=== PATIENT | male | born 1950 | race Caucasian/White ===

== ENCOUNTER 2024-03-12 10:03 | Inpatient (IN) | payer MEDICARE, SELFPAY ==
[2024-03-12] VITALS (8 sets, daily range): BP systolic 137–179; BP diastolic 75–108; PULSE 92–105; RESP 16–20; TEMP 36.7–37.4; O2SAT 96–99; BMI 20.6
[2024-03-12 10:38] LABS: Alanine Aminotransferase 28 IU/L (<50); Albumin 5.4 g/dL (3.5-5.0); Albumin Globulin Ratio 1.6 (1.0-2.8); Alkaline Phosphatase 104 U/L (38-126); Aspartate Aminotransferase 38 IU/L (17-59); BUN Creatinine Ratio 26.8 (6-22); Bilirubin Total 0.9 mg/dL (0.2-1.3); Blood Urea Nitrogen 19 mg/dL (9-20); Calcium 10.3 mg/dL (8.4-10.2); Carbon Dioxide 25 mmol/L (22-32); Chloride 95 mmol/L (98-107); Creatine Kinase 127 U/L (55-170); Estimated Glomerular Filt Rate > 60 mL/min (>60); Globulin 3.4 g/dL (1.7-4.1); Glucose 150 mg/dL (80-110); HEMOLYSIS < 15 (0-50); Hematocrit 37.5 % (41-53); Hemoglobin 12.1 g/dL (13.5-17.5); Lipase 129 U/L (23-300); Mean Corpuscular HGB Conc 32.1 % (30-36); Mean Corpuscular Hemoglobin 25.2 PG (26-34); Mean Corpuscular Volume 78.4 fL (80-100); Platelet Count 519 X10^3/uL (150-400); Potassium 3.5 mmol/L (3.4-5.1); Red Blood Cell Count 4.78 X10^6/uL (4.5-5.9); Red Cell Distribution Width 18.7 % (11.6-14.8); Sodium 131 mmol/L (137-145); Total Protein 8.8 g/dL (6.3-8.2); White Blood Cell Count 15.2 X10^3/uL (4.5-11.0)
--- NOTE | 2024-03-12 10:38 | ED_ITS ---
HPI - General Adult General Chief complaint: Abdominal Pain Stated complaint: ABD Pain, Chronic Pancreatitis Time Seen by Provider: 03/12/24 10:11 Source: patient Mode of arrival: Ambulatory History of Present Illness HPI narrative: Patient is a 74-year-old male who is here for evaluation of approximately 36 hours of upper abdominal pain. He has a history of ulcerative colitis. Also has a history of cutaneous T-cell lymphoma. He was on medications for both of these. Also has a history of chronic pancreatitis. Has had a small bowel obstruction in the past. Has had his appendix removed. Has not had any changes in stool. No blood in the stool. No urinary symptoms. No chest pain but describes the pain in the epigastric region. Is having quite a bit of nausea. Has nausea medication at home that has not helped any of his symptoms. No shortness of breath. Related Data Home Medications Medication Instructions Recorded Confirmed albuterol sulfate 2 mg/5 mL oral 2 mg PO TID 03/08/24 03/08/24 syrup atorvastatin 10 mg tablet 10 mg PO DAILY 03/08/24 03/08/24 budesonide-formoterol HFA 80 2 puff inhalation BID 03/08/24 03/08/24 mcg-4.5 mcg/actuation aerosol inhaler (Symbicort) buprenorphine 8 mg-naloxone 2 mg 1 film buccal Q24H 03/08/24 03/08/24 sublingual film (Suboxone) bupropion HCl 300 mg 24 hr tablet, 300 mg PO QAM 03/08/24 03/08/24 extended release (Wellbutrin XL) candesartan 8 mg tablet 8 mg PO DAILY 03/08/24 03/08/24 escitalopram oxalate 10 mg tablet 10 mg PO DAILY 03/08/24 03/08/24 folic acid 5 mg/mL injection 1 mg IM DAILY 03/08/24 03/08/24 solution methotrexate (PF) 15 mg/0.4 mL 15 mg SUBCUT QWEEK 03/08/24 03/08/24 subcutaneous auto-injector mirtazapine 15 mg tablet 15 mg PO .QHS 03/08/24 03/08/24 mometasone 50 mcg/actuation nasal 2 spray intranasal .prn 03/08/24 03/08/24 spray (Nasonex 24hr Allergy) nabilone 1 mg capsule mg PO 03/08/24 03/08/24 rabeprazole 20 mg tablet,delayed 20 mg PO BID 03/08/24 03/08/24 release tiotropium bromide 1.25 2 puff inhalation DAILY 03/08/24 03/08/24 mcg/actuation mist for inhalation (Spiriva Respimat) vedolizumab 300 mg intravenous 300 mg IV Q8W 03/08/24 03/08/24 solution (Entyvio) Allergies Allergy/AdvReac Type Severity Reaction Status Date / Time No Known Drug Allergies Allergy Unverified 03/08/24 13:34 Review of Systems Review of Systems ROS Unobtainable: All systems reviewed & are unremarkable except as noted in HPI and below Patient History Social History Smoking Status: Former smoker Smoking Status: Former smoker Substance Use Type: marijuana Exam Initial Vital Signs Initial Vital Signs: Vital Signs Temperature 98.1 F 03/12/24 10:19 Pulse Rate 92 H 03/12/24 10:19 Respiratory Rate 20 03/12/24 10:19 Blood Pressure 179/108 H 03/12/24 10:19 Pulse Oximetry 99 03/12/24 10:19 Oxygen Delivery Method Room Air 03/12/24 10:19 Const General: cooperative and No ill appearing HENMT Head: normal to inspection and normocephalic Resp Effort & Inspection: normal respiratory effort Auscultation: clear to auscultation bilaterally Cardio Rate: regular rate Rhythm: regular rhythm GI Inspection: normal to inspection and non-distended Palpation: soft, No firm, No guarding and tender (Epigastric region) Neuro General: patient alert, patient awake, patient oriented x3 and moves all extremities Speech: speech normal Extrem General: No edema Course Orders Ordered: ED Orders 03/12/24 10:17 Complete Blood Count AUTO DIFF Stat Comprehensive Metabolic Panel Stat Lipase Stat Troponin & CK Cardiac Panel Stat 03/12/24 10:28 EKG-12 Lead Stat 03/12/24 10:37 CT abdomen pelvis w con Stat 03/12/24 13:20 Consult to Physician Stat 03/12/24 13:46 Consult to Physician Stat Consult to Physician Stat Discontinued Medications Metoclopramide HCl (Metoclopramide 10 Mg/2 Ml Inj) 10 mg IV NOW ONE Stop: 03/12/24 10:38 Last Admin: 03/12/24 11:08 Dose: 10 mg Documented By: JAY Morphine Sulfate (Morphine 4 Mg/Ml Inj) 4 mg IV NOW ONE Stop: 03/12/24 10:38 Last Admin: 03/12/24 11:08 Dose: 4 mg Documented By: JAY Pantoprazole Sodium (Pantoprazole 40 Mg Vial) 40 mg IV NOW ONE Stop: 03/12/24 10:29 Last Admin: 03/12/24 11:08 Dose: 40 mg Documented By: JAY Vital Signs Vital signs: Vital Signs - 8 hr 03/12/24 10:19 Temperature 98.1 F Pulse Rate 92 H Respiratory Rate 20 Blood Pressure 179/108 H Pulse Oximetry 99 Oxygen Delivery Method Room Air Medical Decision Making Lab Data Lab results reviewed: Yes I reviewed the patient's lab results. 03/12/24 10:17 03/12/24 10:17 Labs: Lab Results 03/12/24 Range/Units 10:17 WBC 15.2 H (4.5-11.0) X10^3/uL RBC 4.78 (4.5-5.9) X10^6/uL Hgb 12.1 L (13.5-17.5) g/dL Hct 37.5 L (41-53) % MCV 78.4 L (80-100) fL MCH 25.2 L (26-34) PG MCHC 32.1 (30-36) % RDW 18.7 H (11.6-14.8) % Plt Count 519 H (150-400) X10^3/uL Neut % (Auto) Not Reportable Lymph % (Auto) Not Reportable [place] % (Auto) Not Reportable Eos % (Auto) Not Reportable Baso % (Auto) Not Reportable Lymph # (Auto) Not Reportable [place] # (Auto) Not Reportable Baso # (Auto) Not Reportable Total Counted 100 Seg Neutrophils % 82.0 H (38-70) % Band Neutrophils % 1.0 L (3-7) % Lymphocytes % (Manual) 10.0 L (25-45) % Monocytes % (Manual) 7.0 (2-11) % Neutrophils # (Manual) 90321 H (6960-2304) /uL Nucleated RBCs 1 H ( - 0) #/Diff RBC Morphology See below Poikilocytosis 1+ H Anisocytosis 1+ H Sodium 131 L (137-145) mmol/L Potassium 3.5 (3.4-5.1) mmol/L Chloride 95 L (98-107) mmol/L Carbon Dioxide 25 (22-32) mmol/L BUN 19 (9-20) mg/dL Creatinine 0.71 (0.66-1.25) mg/dL Estimated GFR > 60 (>60) mL/min BUN/Creatinine Ratio 26.8 H (6-22) Glucose 150 H (80-110) mg/dL Calcium 10.3 H (8.4-10.2) mg/dL Total Bilirubin 0.9 (0.2-1.3) mg/dL AST 38 (17-59) IU/L ALT 28 (<50) IU/L Alkaline Phosphatase 104 (38-126) U/L Total Creatine Kinase 127 (55-170) U/L Troponin I < 0.012 (0.01-0.034) ng/mL Total Protein 8.8 H (6.3-8.2) g/dL Albumin 5.4 H (3.5-5.0) g/dL Globulin 3.4 (1.7-4.1) g/dL Albumin/Globulin Ratio 1.6 (1.0-2.8) Lipase 129 (23-300) U/L Imaging Data CT scan - abdomen/pelvis: Radiologist's Impression: ROCEDURE: CT ABDOMEN PELVIS W CON INDICATIONS: hx of SBO, ulcerative colitis and chronic pancreatitis TECHNIQUE: After the administration of intravenous contrast, axial sections acquired from the lung bases to the pubic symphysis. Coronal and sagittal reformats were performed. For radiation dose reduction, the following was used: automated exposure control, adjustment of mA and/or kV according to patient size. COMPARISON: None. FINDINGS: Lower thorax: Fluid distension of the distal esophagus associated with significant fluid distension of the stomach and proximal small bowel Liver: Normal in size and attenuation. No contour deformity present. Biliary system: No calcified cholelithiasis or pericholecystic inflammation. No intra or extrahepatic bile duct dilatation. Pancreas: Unremarkable without mass or inflammation evident. Spleen: Surgically absent Adrenals: Normal morphology and density. Reproductive system: Unremarkable as visualized. Urinary system: Normal renal size and attenuation. No renal calculi, hydronephrosis, or solid mass present. Urinary bladder unremarkable. Gastrointestinal system: Stomach, duodenum and proximal small bowel significantly fluid distended to a transition to normal caliber bowel in the mid left anterior abdomen. Bowel is dilated up to 4.8 cm Appendix: Appendectomy Peritoneal spaces: No mesenteric or retroperitoneal adenopathy. No free air. No free fluid. Vasculature: Aortic atherosclerotic vascular calcification noted without evidence of aneurysm. Abdominal wall: Abdominal wall intact without evidence of ventral or inguinal hernias. Musculoskeletal: Normal bone mineralization. Degenerative disc disease and arthropathy noted in lower lumbar spine. Lower lumbar spine fusion, instrumentation decompression. No acute fractures. IMPRESSION: 1. Small bowel obstruction. Transition in the mid left anterior abdomen 2. Splenectomy. No adenopathy. MDM Narrative Medical decision making narrative: CT scan today shows small bowel obstruction without signs of perforation. An NG tube was placed with a significant amount of stomach contents. Patient reports improvement of symptoms afterwards. Discussed the case with Dr. Santiago on- call for General surgery who as the patient be admitted to the medicine service. A consult was placed. Discussed the case with Dr. Prasad on-call for the patient's primary doctor who will admit for further evaluation and treatment. Discussed the CT scan findings with the patient who expressed understanding and agreement. Discharge Plan Departure Patient Disposition: Admitted As Inpatient Clinical Impression: Small bowel obstruction
[2024-03-12 10:40] LABS: Add Manual Diff / Slide Review YES
[2024-03-12 10:50] LABS: Troponin I < 0.012 ng/mL (0.01-0.034)
[2024-03-12] MEDS: PANTOPRAZOLE 40 MG VIAL IV (11:08)
[2024-03-12] MEDS: MORPHINE 4 MG/ML INJ IV (11:08)
[2024-03-12] MEDS: METOCLOPRAMIDE 10 MG/2 ML INJ IV (11:08)
[2024-03-12 11:11] LABS: Neutrophils Absolute Manual 12616 /uL (3000-5900); Nucleated Red Blood Cells 1 #/Diff; Total Cells Counted 100
[2024-03-12 11:12] LABS: Anisocytosis 1+; Poikilocytosis 1+
--- NOTE | 2024-03-12 13:04 | PC.NURSE ---
patient got an NG tube inserted. Immediately began vomiting and green fluid began flowing out of the tube. 1L was suctioned off into the canister with more fluid flowing in into the new tank. He stated his abd pain was getting less. His blood pressure went down as well to 152/91.
--- NOTE | 2024-03-12 13:08 | PC.NURSE ---
Patient had 1L of fluid drained immediately from the NG site. He reported feeling better immediately. His abd pain has lessoned and his BP decreased
[2024-03-12] MEDS: DEXTROSE 5%-0.9% NS 1,000 ML 125 ML IV ×2 (14:44→22:05)
[2024-03-12] MEDS: ONDANSETRON 4 MG/2 ML INJ IV (14:44)
[2024-03-12] MEDS: HYDROMORPHONE 1 MG INJ IV ×2 (14:53→20:34)
[2024-03-12] MEDS: NITROGLYCERIN OINT 1 INCH/GM OINT...G. 0.5 INCH TOP (15:37)
--- NOTE | 2024-03-12 17:48 | PM.CN ---
History of Present Illness Consult details Date Patient Seen: 03/12/24 Chief complaint: ABD Pain, Chronic Pancreatitis Reason for consult: SBO Requesting provider: Andrew Michelle Narrative: Not passing gas or BM, nausea and anorexia. Had similar episode prior which required surgery. Has had multiple abdominal surgeries. Know Ulerative colitis. Meds Home Medications and Allergies Home Medications Medication Instructions Recorded Confirmed Type atorvastatin 10 mg tablet 10 mg PO DAILY 03/08/24 03/12/24 History budesonide-formoterol HFA 80 2 puff inhalation BID 03/08/24 03/12/24 History mcg-4.5 mcg/actuation aerosol inhaler (Symbicort) buprenorphine 8 mg-naloxone 2 mg 1 film buccal TID 03/08/24 03/12/24 History sublingual film (Suboxone) bupropion HCl 300 mg 24 hr tablet, 300 mg PO QAM 03/08/24 03/12/24 History extended release (Wellbutrin XL) candesartan 8 mg tablet 8 mg PO DAILY 03/08/24 03/12/24 History escitalopram oxalate 10 mg tablet 10 mg PO DAILY 03/08/24 03/12/24 History folic acid 5 mg/mL injection 1 mg IM DAILY 03/08/24 03/12/24 History solution methotrexate (PF) 15 mg/0.4 mL 15 mg SUBCUT QWEEK 03/08/24 03/12/24 History subcutaneous auto-injector mirtazapine 15 mg tablet 15 mg PO .QHS 03/08/24 03/12/24 History mometasone 50 mcg/actuation nasal 2 spray intranasal .prn 03/08/24 03/12/24 History spray (Nasonex 24hr Allergy) nabilone 1 mg capsule mg PO 03/08/24 03/08/24 History rabeprazole 20 mg tablet,delayed 20 mg PO BID 03/08/24 03/12/24 History release tiotropium bromide 1.25 2 puff inhalation DAILY 03/08/24 03/12/24 History mcg/actuation mist for inhalation (Spiriva Respimat) vedolizumab 300 mg intravenous 300 mg IV Q8W 03/08/24 03/12/24 History solution (Entyvio) albuterol 90 mcg/actuation aerosol 90 mcg inhalation PRN PRN 03/12/24 03/12/24 History inhaler Shortness Of Breath Allergies Allergy/AdvReac Type Severity Reaction Status Date / Time No Known Drug Allergies Allergy Unverified 03/08/24 13:34 Review of Systems Review of Systems ROS: Yes All systems reviewed with the patient and are negative except as otherwise documented Exam Vital Signs (past 8 hours): - 03/12/24 10:19 03/12/24 14:35 03/12/24 15:37 Temperature 98.1 F 99.4 F Pulse Rate 92 H 102 H 102 H Respiratory Rate 20 18 Blood Pressure 179/108 H 155/95 H 155/95 H Pulse Oximetry 99 98 Oxygen Delivery Method Room Air Oxygen Flow Rate 0 03/12/24 16:00 Temperature 98.5 F Pulse Rate 105 H Respiratory Rate 16 Blood Pressure 169/100 H Pulse Oximetry 97 Oxygen Delivery Method Oxygen Flow Rate 0 Oxygen Delivery Method Room Air Oxygen Flow Rate 0 Narrative Exam Narrative: reports he is confused and remains so at the time of my exam. He denies any focal pain. Const General: cooperative, comfortable and anxious Nutritional Appearance: thin HENMT Head: normocephalic and atraumatic Ears: hearing grossly normal bilaterally Face and sinus: normal facial exam Eyes General: appearance normal, both eyes and all related structures Sclera: sclerae normal Neck Neck: no meningeal signs and trachea midline Chest Chest: normal inspection of the chest Resp Effort & Inspection: normal respiratory effort and able to speak in complete sentences Cardio Rate: tachycardic Rhythm: regular rhythm GI Inspection: distended Palpation: No firm, No guarding and No rigid Skin General: atrophy and dry skin Neuro General: patient alert, patient awake and patient oriented x3 Psych Mental Status: mental status grossly normal Affect: normal affect Judgment: fair Objective Labs 03/12/24 10:17 03/12/24 10:17 Labs: Laboratory Results - last 24 hr 03/12/24 10:17 WBC 15.2 H RBC 4.78 Hgb 12.1 L Hct 37.5 L MCV 78.4 L MCH 25.2 L MCHC 32.1 RDW 18.7 H Plt Count 519 H Neut % (Auto) Not Reportable Lymph % (Auto) Not Reportable [place] % (Auto) Not Reportable Eos % (Auto) Not Reportable Baso % (Auto) Not Reportable Lymph # (Auto) Not Reportable [place] # (Auto) Not Reportable Baso # (Auto) Not Reportable Total Counted 100 Seg Neutrophils % 82.0 H Band Neutrophils % 1.0 L Lymphocytes % (Manual) 10.0 L Monocytes % (Manual) 7.0 Neutrophils # (Manual) 16026 H Nucleated RBCs 1 H RBC Morphology See below Poikilocytosis 1+ H Anisocytosis 1+ H Sodium 131 L Potassium 3.5 Chloride 95 L Carbon Dioxide 25 BUN 19 Creatinine 0.71 Estimated GFR > 60 BUN/Creatinine Ratio 26.8 H Glucose 150 H Calcium 10.3 H Total Bilirubin 0.9 AST 38 ALT 28 Alkaline Phosphatase 104 Total Creatine Kinase 127 Troponin I < 0.012 Total Protein 8.8 H Albumin 5.4 H Globulin 3.4 Albumin/Globulin Ratio 1.6 Lipase 129 PFSH Medical History Bladder cancer Coronary artery disease Ulcerative colitis COPD (chronic obstructive pulmonary disease) Depression GERD without esophagitis T-cell lymphoma Uncomplicated opioid dependence Chronic back pain Essential hypertension Surgical History S/P exploratory laparotomy S/P splenectomy Tobacco & Substance Use Smoking Status: Former smoker Assessment & Plan Assessment & Plan narrative: 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 NGT in place Plan: gastric decompression, rehydration. Re eval in am for possible gastrografin challenge. Time Spent With Patient Time with patient: 30 to 49 minutes with 50% spent counseling/coordinating care
[2024-03-12] MEDS: LORazepam 2 MG/ML INJ 1 MG IV (18:12)
--- NOTE | 2024-03-12 19:10 | P.HP_ITS ---
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 Consistent with prior discomfort he has had with prior bowel obstructions. Presented to the emergency department with this plus significant nausea but no emesis. ER evaluation did indeed diagnose small-bowel obstruction with a lot of gastric distention. NG tube was placed and large volume was returned. Patient was some relief of symptoms with NG tube placement. His white count was slightly elevated at 15,000 with an elevated platelet count probably secondary to the inflammatory response. His white count is left shifted as well. He was admitted for bowel rest continue decompression with the NG tube and pain and nausea management Patient has had multiple episodes of bowel obstruction and has required surgery for resection with his most recent bowel obstruction. Has known ulcerative colitis. General surgery was consulted via the emergency department and has already seen the patient Patient was significant medical problems as noted including chronic pain (back) for which he is chronically on Suboxone, COPD for which he is on Spiriva Symbicort and albuterol, the ulcerative colitis for which he has been on Entyvio, cardiac disease based on positive stress test about 6 months ago. Has been having stable anginal type symptoms and no cardiac catheterization has been done, bladder cancer 1986, splenectomy at age 33 [facility] Medical History Bladder cancer Coronary artery disease Ulcerative colitis COPD (chronic obstructive pulmonary disease) Depression GERD without esophagitis T-cell lymphoma Uncomplicated opioid dependence Chronic back pain Essential hypertension Surgical History S/P exploratory laparotomy S/P splenectomy Social History Smoking Status: Former smoker alcohol intake: former Meds Home Medications and Allergies Home Medications Medication Instructions Recorded Confirmed Type atorvastatin 10 mg tablet 10 mg PO DAILY 03/08/24 03/12/24 History budesonide-formoterol HFA 80 2 puff inhalation BID 03/08/24 03/12/24 History mcg-4.5 mcg/actuation aerosol inhaler (Symbicort) buprenorphine 8 mg-naloxone 2 mg 1 film buccal TID 03/08/24 03/12/24 History sublingual film (Suboxone) bupropion HCl 300 mg 24 hr tablet, 300 mg PO QAM 03/08/24 03/12/24 History extended release (Wellbutrin XL) candesartan 8 mg tablet 8 mg PO DAILY 03/08/24 03/12/24 History escitalopram oxalate 10 mg tablet 10 mg PO DAILY 03/08/24 03/12/24 History folic acid 5 mg/mL injection 1 mg IM DAILY 03/08/24 03/12/24 History solution methotrexate (PF) 15 mg/0.4 mL 15 mg SUBCUT QWEEK 03/08/24 03/12/24 History subcutaneous auto-injector mirtazapine 15 mg tablet 15 mg PO .QHS 03/08/24 03/12/24 History mometasone 50 mcg/actuation nasal 2 spray intranasal .prn 03/08/24 03/12/24 History spray (Nasonex 24hr Allergy) nabilone 1 mg capsule mg PO 03/08/24 03/08/24 History rabeprazole 20 mg tablet,delayed 20 mg PO BID 03/08/24 03/12/24 History release tiotropium bromide 1.25 2 puff inhalation DAILY 03/08/24 03/12/24 History mcg/actuation mist for inhalation (Spiriva Respimat) vedolizumab 300 mg intravenous 300 mg IV Q8W 03/08/24 03/12/24 History solution (Entyvio) albuterol 90 mcg/actuation aerosol 90 mcg inhalation PRN PRN 03/12/24 03/12/24 History inhaler Shortness Of Breath Allergies Allergy/AdvReac Type Severity Reaction Status Date / Time No Known Drug Allergies Allergy Unverified 03/08/24 13:34 Review of Systems Review of Systems ROS: Yes All systems reviewed with the patient and are negative except as otherwise documented Exam Vital Signs (past 8 hours): - 03/12/24 14:35 03/12/24 15:37 03/12/24 16:00 Temperature 99.4 F 98.5 F Pulse Rate 102 H 102 H 105 H Respiratory Rate 18 16 Blood Pressure 155/95 H 155/95 H 169/100 H Pulse Oximetry 98 97 Oxygen Flow Rate 0 0 03/12/24 18:00 Temperature 98.1 F Pulse Rate 100 H Respiratory Rate 18 Blood Pressure 168/95 H Pulse Oximetry 98 Oxygen Flow Rate 0 Oxygen Delivery Method Room Air Oxygen Flow Rate 0 Narrative Exam Narrative: Somewhat cachectic and somewhat chronically ill-appearing male in no obvious distress lying in hospital bed with an NG-tube in place HEENT-normocephalic atraumatic Neck-no bruits Lungs-clear with good breath sounds Heart-tachycardic but regular rate and rhythm Abdomen-no bowel tones present soft no rebound or guarding minimal if any tenderness Objective Labs 03/12/24 10:17 03/12/24 10:17 Labs: Laboratory Results - last 24 hr 03/12/24 10:17 WBC 15.2 H RBC 4.78 Hgb 12.1 L Hct 37.5 L MCV 78.4 L MCH 25.2 L MCHC 32.1 RDW 18.7 H Plt Count 519 H Neut % (Auto) Not Reportable Lymph % (Auto) Not Reportable [place] % (Auto) Not Reportable Eos % (Auto) Not Reportable Baso % (Auto) Not Reportable Lymph # (Auto) Not Reportable [place] # (Auto) Not Reportable Baso # (Auto) Not Reportable Total Counted 100 Seg Neutrophils % 82.0 H Band Neutrophils % 1.0 L Lymphocytes % (Manual) 10.0 L Monocytes % (Manual) 7.0 Neutrophils # (Manual) 62806 H Nucleated RBCs 1 H RBC Morphology See below Poikilocytosis 1+ H Anisocytosis 1+ H Sodium 131 L Potassium 3.5 Chloride 95 L Carbon Dioxide 25 BUN 19 Creatinine 0.71 Estimated GFR > 60 BUN/Creatinine Ratio 26.8 H Glucose 150 H Calcium 10.3 H Total Bilirubin 0.9 AST 38 ALT 28 Alkaline Phosphatase 104 Total Creatine Kinase 127 Troponin I < 0.012 Total Protein 8.8 H Albumin 5.4 H Globulin 3.4 Albumin/Globulin Ratio 1.6 Lipase 129 Assessment & Plan Assessment & Plan narrative: 1. Small-bowel obstruction-continue as above with nasogastric decompression bowel rest by making patient NPO. Use of parental narcotics and antiemetics is entirely appropriate to control symptoms. General surgery has been consulted and is following. Hopefully will resolve on its own. 2. Ulcerative colitis-patient normally on Entyvio. No preceding symptoms so doubt that this particular GI issue is related to active UC. Resume Entyvio when discharge inappropriate depending on whether not he needs a surgical intervention etcetera 3. Chronic pain-patient chronically on Suboxone for chronic pain. Continue patient's usual dose of Suboxone for now and plan to use parental hydromorphone for additional pain needs. Hopefully the strategy will be more than adequate to control his pain which can not be sometimes difficult for patients chronically on Suboxone. Could also escalate dose of Suboxone for pain relief if necessary but will plan to use parental IV hydromorphone in addition to regular dose Suboxone for now. 4. Depression-patient on multiple antidepressants. Will need to hold these for now while patient is NPO. Hopefully can be restarted sooner rather than later 5. Coronary disease-patient apparently felt to have stable coronary disease. No detailed records are available at this time. Continue to monitor for evidence of more active coronary disease which not appear to be the case at this time. Resume patient's usual meds when no longer NPO 6. COPD-will continue with albuterol nebulizers. Patient can also have his other inhalers at this time. No evidence of exacerbation but continue monitor 7. Essential hypertension-continue to monitor carefully. Patient unable to take his usual antihypertensive meds. Will use topical nitrates in effort to help with blood pressure and as a cardioprotective agent. Parental intermittent metoprolol could also be used for episodes of more severe hypertension 8. VTE prophylaxis-Lovenox makes sense and has been ordered 9. Code status-patient full code in the event of a sudden cardiac or respiratory arrest which is not at this time anticipated Patient recently established care with Dr. Swift, to whom I will sign out, and who will assume care beginning WednesdayMarch 13 PROF[facility] Charge Codes Initial inpatient/observation care: [id number]
[2024-03-12] MEDS: ALBUTEROL/IPRATROPIUM 3 ML AMPUL INH (20:22)
[2024-03-12] MEDS: BUDESONIDE 0.5 MG/2 ML NEB INH (20:22)
[2024-03-12] MEDS: NITROGLYCERIN OINT 1 INCH/GM OINT...G. TOP ×2 (21:22→23:38)
[2024-03-12] MEDS: BUPRENORPHINE/NALOXONE 8MG/2MG 1 TAB SL (21:57)
[2024-03-13] VITALS (14 sets, daily range): BP systolic 137–162; BP diastolic 82–101; PULSE 67–100; RESP 16–20; TEMP 36.6–37.3; O2SAT 96–98
[2024-03-13] MEDS: NITROGLYCERIN OINT 1 INCH/GM OINT...G. TOP ×6 (04:04→23:33)
[2024-03-13 06:16] LABS: Add Manual Diff / Slide Review NO; Basophils Absolute Auto 0 /uL (0-100); Basophils Percent Auto 0.3 % (0-2); Eosinophils Absolute Auto 0 /uL (0-450); Eosinophils Percent Auto 0.1 % (2-4); Hematocrit 31.1 % (41-53); Hemoglobin 10.1 g/dL (13.5-17.5); Lymphocytes Absolute Auto 500 /uL (1100-4500); Mean Corpuscular HGB Conc 32.3 % (30-36); Mean Corpuscular Hemoglobin 25.2 PG (26-34); Monocytes Absolute Auto 1800 /uL (0-900); Monocytes Percent Auto 13.6 % (3-14); Neutrophils Absolute Auto 10900 /uL (1500-7000); Platelet Count 421 X10^3/uL (150-400); Red Blood Cell Count 3.99 X10^6/uL (4.5-5.9); Red Cell Distribution Width 18.7 % (11.6-14.8); White Blood Cell Count 13.2 X10^3/uL (4.5-11.0)
[2024-03-13] MEDS: DEXTROSE 5%-0.9% NS 1,000 ML 125 ML IV ×2 (06:20→21:21)
[2024-03-13 06:28] LABS: BUN Creatinine Ratio 26.7 (6-22); Blood Urea Nitrogen 16 mg/dL (9-20); Carbon Dioxide 28 mmol/L (22-32); Chloride 103 mmol/L (98-107); Estimated Glomerular Filt Rate > 60 mL/min (>60); Glucose 138 mg/dL (80-110); HEMOLYSIS < 15 (0-50); Sodium 135 mmol/L (137-145)
[2024-03-13] MEDS: BUDESONIDE 0.5 MG/2 ML NEB INH ×2 (07:20→20:07)
[2024-03-13] MEDS: ALBUTEROL/IPRATROPIUM 3 ML AMPUL INH ×4 (07:20→20:07)
--- NOTE | 2024-03-13 08:06 | DI.RAD.S_ITS ---
PROCEDURE: XR GASTROGRAFIN CHALLENGE COMPARISON: [facility], CT, CT ABDOMEN PELVIS W CON, 03/12/2024, 11:15. INDICATIONS: bowel obstruction FINDINGS: Nasogastric tube is present. Contrast is present within the stomach as well as small bowel. Portions of the colon also demonstrate contrast. There has been marked interval decompression of the distended fluid-filled stomach as well as small bowel loops. Mild small bowel loop prominence persists although decreased compared to prior exam. Lumbar fixation rods are present. IMPRESSION: Improved appearance with mild residual appearance of partial small bowel obstruction. Dictated by: Ryann Willett M.D. on 03/17/2024 at 17:11 Approved by: Ryann Willett M.D. on 03/17/2024 at 17:12
[2024-03-13] MEDS: ENOXAPARIN 40 MG/0.4 ML SYRINGE SUBCUT (08:17)
[2024-03-13] MEDS: BUPRENORPHINE/NALOXONE 8MG/2MG 1 TAB SL ×3 (08:17→20:21)
--- NOTE | 2024-03-13 08:33 | P.PN_ITS ---
Subjective Subjective Date Patient Seen: 03/13/24 Time Patient Seen: 08:15 Interval history: Care assumed from Dr Prasad this morning. Briefly, pt had increasing abdominal pain the evening of 03/11 into 03/12. He had associated nausea but no emesis. He was seen in the ED, and diagnosed with a small bowel obstruction. NG tube was placed with significant output. The pt reports feeling significantly improved from a pain standpoint this morning. He states his pain is relatively minimal. He has not passed any flatus. He has no other specific concerns/complaints. He denies any chest pain, SOB. Exam Vital Signs (past 8 hours): - 03/13/24 02:00 03/13/24 07:20 03/13/24 08:00 Temperature 98.6 F 98.8 F Pulse Rate 74 88 67 Respiratory Rate 17 18 18 Blood Pressure 140/86 145/82 H Pulse Oximetry 96 96 97 Oxygen Delivery Method Room Air Oxygen Flow Rate 0 0 0 Fraction of Inspired Oxygen 21 03/13/24 08:18 Temperature Pulse Rate 67 Respiratory Rate Blood Pressure 145/82 H Pulse Oximetry Oxygen Delivery Method Oxygen Flow Rate Fraction of Inspired Oxygen Fraction of Inspired Oxygen 21 SaO2/FiO2 Ratio 457 Oxygen Delivery Method Room Air Oxygen Flow Rate 0 Narrative Exam Narrative: Gen: NAD, sitting comfortably in bed with NG tube in place, appears fatigued CV: RRR, no murmurs Resp: clear to auscultation bilaterally, no wheezing or crackles Abd: soft, mild diffuse tenderness without rebound/guarding/rigidity, significantly decreased bowel sounds, nondistended Ext: no edema Neuro: no gross deficits Objective Labs 03/13/24 05:30 03/13/24 05:30 Labs: Laboratory Results - last 24 hr 03/12/24 03/13/24 10:17 05:30 WBC 15.2 H 13.2 H RBC 4.78 3.99 L Hgb 12.1 L 10.1 L Hct 37.5 L 31.1 L MCV 78.4 L 78.0 L MCH 25.2 L 25.2 L MCHC 32.1 32.3 RDW 18.7 H 18.7 H Plt Count 519 H 421 H Neut % (Auto) Not Reportable 82.0 H Lymph % (Auto) Not Reportable 4.0 L [place] % (Auto) Not Reportable 13.6 Eos % (Auto) Not Reportable 0.1 L Baso % (Auto) Not Reportable 0.3 Neut # (Auto) 22618 H Lymph # (Auto) Not Reportable 500 L [place] # (Auto) Not Reportable 1800 H Eos # (Auto) 0 Baso # (Auto) Not Reportable 0 Total Counted 100 Seg Neutrophils % 82.0 H Band Neutrophils % 1.0 L Lymphocytes % (Manual) 10.0 L Monocytes % (Manual) 7.0 Neutrophils # (Manual) 54066 H Nucleated RBCs 1 H RBC Morphology See below Poikilocytosis 1+ H Anisocytosis 1+ H Sodium 131 L 135 L Potassium 3.5 3.0 L Chloride 95 L 103 Carbon Dioxide 25 28 BUN 19 16 Creatinine 0.71 0.60 L Estimated GFR > 60 > 60 BUN/Creatinine Ratio 26.8 H 26.7 H Glucose 150 H 138 H Calcium 10.3 H 9.0 Total Bilirubin 0.9 AST 38 ALT 28 Alkaline Phosphatase 104 Total Creatine Kinase 127 Troponin I < 0.012 Total Protein 8.8 H Albumin 5.4 H Globulin 3.4 Albumin/Globulin Ratio 1.6 Lipase 129 PFSH Medical History Bladder cancer Coronary artery disease Ulcerative colitis COPD (chronic obstructive pulmonary disease) Depression GERD without esophagitis T-cell lymphoma Uncomplicated opioid dependence Chronic back pain Essential hypertension Surgical History S/P exploratory laparotomy S/P splenectomy Social History Smoking Status: Former smoker alcohol intake: former Assessment & Plan Assessment & Plan narrative: 74yo man with ulcerative colitis, COPD, chronic pain on suboxone, HTN, GERD, depression, cutaneous T cell lymphoma, and hx of small bowel obstruction requiring surgical intervention who presented with abdominal pain, imaging consistent with small bowel obstruction. 1) Small bowel obstruction: Pain improved this morning after NG tube decompression. NG continues to drain. - Surgery consulted, appreciate ongoing care - Gastrografin study this morning - Continue NPO with NG tube in place - Zofran PRN for nausea - Continue mIVF - Dilaudid PRN for pain control, can also increase Suboxone dosing if needed 2) Ulcerative colitis: Recently stable. On Entyvio. - Hold Entyvio for now 3) Chronic pain: Recently stable on Suboxone. Does have hx of prescription narcotic addiction as well. - Continue home Suboxone - Will work to promptly wean from narcotics as able 4) Depression: - Holding antidepressants while NPO, will plan to reinitiate as soon as able to start pills 5) COPD: Stable. No evidence exacerbation. - Continue home inhalers 6) HTN: BP in acceptable range - Continue nitro paste for now - Can add IV Metoprolol if needed for better control while NPO in the future - Hold home antihypertensives while NPO 7) Likely CAD: Pt with positive stress testing completed within the past 6 months. Currently with stable symptoms. No evidence of cardiac concern currently. - Monitor for symptoms 8) Hypokalemia: Mild - IV potassium supplementation as per protocol FEN: NPO DVT ppx: Lovenox Code: Full Dispo: Pending ongoing improvement in symptoms, ability to advance diet, etc.
[2024-03-13] MEDS: POTASSIUM CHLORIDE IN WATER 10 MEQ/100 ML PIGGYBACK 100 MEQ IV ×6 (08:45→15:53)
--- NOTE | 2024-03-13 12:02 | PM.PN.1 ---
Subjective Subjective Date Patient Seen: 03/13/24 Time Patient Seen: 12:02 Interval history: Patient sleeping. NGT in place. Exam Vital Signs (past 8 hours): - 03/13/24 07:00 03/13/24 07:20 03/13/24 08:00 Temperature 98.8 F Pulse Rate 88 67 Respiratory Rate 18 18 Blood Pressure 145/82 H Pulse Oximetry 97 96 97 Oxygen Delivery Method Room Air Room Air Oxygen Flow Rate 0 0 Fraction of Inspired Oxygen 21 03/13/24 08:18 Temperature Pulse Rate 67 Respiratory Rate Blood Pressure 145/82 H Pulse Oximetry Oxygen Delivery Method Oxygen Flow Rate Fraction of Inspired Oxygen Fraction of Inspired Oxygen 21 SaO2/FiO2 Ratio 457 Oxygen Delivery Method Room Air Oxygen Flow Rate 0 Narrative Exam Narrative: abdomen is flat and soft. +BS Objective Labs 03/13/24 05:30 03/13/24 05:30 Labs: Laboratory Results - last 24 hr 03/13/24 05:30 WBC 13.2 H RBC 3.99 L Hgb 10.1 L Hct 31.1 L MCV 78.0 L MCH 25.2 L MCHC 32.3 RDW 18.7 H Plt Count 421 H Neut % (Auto) 82.0 H Lymph % (Auto) 4.0 L [place] % (Auto) 13.6 Eos % (Auto) 0.1 L Baso % (Auto) 0.3 Neut # (Auto) 17340 H Lymph # (Auto) 500 L [place] # (Auto) 1800 H Eos # (Auto) 0 Baso # (Auto) 0 Sodium 135 L Potassium 3.0 L Chloride 103 Carbon Dioxide 28 BUN 16 Creatinine 0.60 L Estimated GFR > 60 BUN/Creatinine Ratio 26.7 H Glucose 138 H Calcium 9.0 PFSH Medical History Bladder cancer Coronary artery disease Ulcerative colitis COPD (chronic obstructive pulmonary disease) Depression GERD without esophagitis T-cell lymphoma Uncomplicated opioid dependence Chronic back pain Essential hypertension Surgical History S/P exploratory laparotomy S/P splenectomy Social History Smoking Status: Former smoker alcohol intake: former Assessment & Plan Assessment & Plan narrative: 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 Time Spent With Patient Time with patient: less than 30 minutes
--- NOTE | 2024-03-13 13:58 | CM.DANOTE ---
DCP Assessment Note Pt is a 74yo M here with a small bowel obstruction under INPT status and the care of the provider group and surgeon team. PCP [place] Payer Medicare and self pay CLINICAL MICROBIOLOGIST reviewed EMR. Per nursing staff report, pt has been OOB/ambulating indep. Medical POC pending results of gastrografin study. Pt currently has an NG tube. PMH of prior bowel obstructions with surgical intervention. CLINICAL MICROBIOLOGIST entered room and introduced self and role. Pt sitting up in bed. Pt lives in [place] with spouse, dtr, and ORLY. Pt uses no DME to ambulate at baseline and is indept at baseline. Pt reports he had a BM this afternoon and was eager to eat his orange Popsicle. Pt denies CM/DCP needs at this time. Plan: POC pending results of gastrograph study, anticipate home with family when medically stable. Will transport with family in POV. CM team will continue to follow closely for any DCP/CM needs that arise. DARIO Pineda Discharge Planning/Care Management CM Discharge Assessment Start: 03/13/24 13:54 Freq: Status: Active Protocol: Document 03/13/24 13:54 (Rec: 03/13/24 13:56 [id number]) Discharge Planning Assessment Assigned General Practice DARIO Ford DPOA/Assigned Designee Name josiah Nichols Contact Information [phone] Advance Directives? No History Provided By Patient,Medical Record Prior Living Arrangements House Household Members significant other,children Independent with ADL's Yes Is patient alert and oriented? Yes Discharge Plan Home Transportation Arrangement family in POV Referrals Initiated None needed Whiteboard Updated in Patient Room with Yes name and ext. # of General Practice Review Status In Process Please Provide Date Initial DC 03/13/24 Assessment Was Performed Next Review Type Continued Stay Review
[2024-03-13] MEDS: HYDROMORPHONE 1 MG INJ IV ×2 (15:18→20:39)
[2024-03-13 17:38] LABS: HEMOLYSIS 17 (0-50); Magnesium 2.2 mg/dL (1.6-2.3); Potassium 3.8 mmol/L (3.4-5.1)
[2024-03-13] MEDS: MIRTAZAPINE 15 MG TABLET PO (20:21)
[2024-03-14] VITALS (8 sets, daily range): BP systolic 140–160; BP diastolic 62–93; PULSE 73–101; RESP 16; TEMP 36.6–37.1; O2SAT 96–100
[2024-03-14] MEDS: NITROGLYCERIN OINT 1 INCH/GM OINT...G. TOP (04:55)
[2024-03-14] MEDS: DEXTROSE 5%-0.9% NS 1,000 ML 125 ML IV (05:01)
[2024-03-14] MEDS: ALBUTEROL/IPRATROPIUM 3 ML AMPUL INH ×2 (07:38→10:52)
[2024-03-14] MEDS: BUDESONIDE 0.5 MG/2 ML NEB INH (07:38)
--- NOTE | 2024-03-14 08:33 | PM.PN.1 ---
Subjective Subjective Date Patient Seen: 03/14/24 Time Patient Seen: 08:15 Interval history: The pt reports he feels very well this morning. He denies any abdominal pain. He had a large BM yesterday, and feels he could have another one this morning. His diet was advanced to clears last night, and the pt developed some nausea and a brief bout of abdominal pain afterwards. His NG tube had been removed, but was replaced with 1000cc of bilious drainage after the intake. He feels this was overall a mild flare. Exam Vital Signs (past 8 hours): - 03/14/24 01:25 03/14/24 04:55 03/14/24 05:04 Temperature 98.7 F 97.8 F Pulse Rate 84 86 73 Respiratory Rate 16 16 Blood Pressure 160/80 H 160/80 H 140/62 Pulse Oximetry 98 97 Oxygen Flow Rate 0 0 03/14/24 08:07 Temperature 98.0 F Pulse Rate 94 H Respiratory Rate 16 Blood Pressure 147/93 H Pulse Oximetry 100 Oxygen Flow Rate 0 Fraction of Inspired Oxygen 21 SaO2/FiO2 Ratio 466 Oxygen Delivery Method Room Air Oxygen Flow Rate 0 Narrative Exam Narrative: Gen: NAD, sitting comfortably in bed, NG tube in place, appears well CV: RRR, no murmurs Resp: clear to auscultation bilaterally Abd: soft, nontender, nondistended, normoactive bowel sounds Ext: no edema Objective Labs 03/13/24 05:30 03/13/24 17:20 Labs: Laboratory Results - last 24 hr 03/13/24 17:20 Potassium 3.8 Magnesium 2.2 PFSH Medical History Bladder cancer Coronary artery disease Ulcerative colitis COPD (chronic obstructive pulmonary disease) Depression GERD without esophagitis T-cell lymphoma Uncomplicated opioid dependence Chronic back pain Essential hypertension Surgical History S/P exploratory laparotomy S/P splenectomy Social History household members: significant other and children Smoking Status: Former smoker alcohol intake: former Assessment & Plan Assessment & Plan narrative: 74yo man with ulcerative colitis, COPD, chronic pain on suboxone, HTN, GERD, depression, cutaneous T cell lymphoma, and hx of small bowel obstruction requiring surgical intervention who presented with abdominal pain, imaging consistent with small bowel obstruction. 1) Small bowel obstruction: Pt currently without pain. Diet advanced to clears - last night with some issues however has tolerated well this morning so far. NG tube in place, not attached to suction. - Surgery consulted, appreciate ongoing care - Plan to continue advancing diet today as tolerated - Zofran PRN for nausea - Continue mIVF 2) Ulcerative colitis: Recently stable. On Entyvio. - Hold Entyvio for now 3) Chronic pain: Recently stable on Suboxone. Does have hx of prescription narcotic addiction as well. - Continue home Suboxone 4) Depression: - Restart home Lexapro, Mirtazapine, Wellbutrin 5) COPD: Stable. No evidence exacerbation. - Continue home inhalers 6) HTN: BP in acceptable range - Restart home Candesartan - D/C nitro paste 7) Likely CAD: Pt with positive stress testing completed within the past 6 months. Currently with stable symptoms. No evidence of cardiac concern currently. - Monitor for symptoms FEN: Clear liquids, can advance to full liquids for lunch DVT ppx: Lovenox Code: Full Dispo: Pt very much so desires discharge today. Will see how advancing diet goes throughout the day.
[2024-03-14] MEDS: ENOXAPARIN 40 MG/0.4 ML SYRINGE SUBCUT (08:44)
[2024-03-14] MEDS: BUPRENORPHINE/NALOXONE 8MG/2MG 1 TAB SL (08:44)
[2024-03-14] MEDS: buPROPion XL 150 MG TAB 300 MG PO (09:28)
[2024-03-14] MEDS: LOSARTAN 50 MG TABLET PO (09:28)
[2024-03-14] MEDS: FOLIC ACID 1 MG TABLET 5 MG PO (09:29)
[2024-03-14] MEDS: ESCITALOPRAM 10 MG TABLET PO (09:30)
[2024-03-14] MEDS: PANTOPRAZOLE DR 40 MG TABLET PO (09:30)
[2024-03-14 10:09] LABS: Add Manual Diff / Slide Review NO; Basophils Absolute Auto 100 /uL (0-100); Basophils Percent Auto 0.7 % (0-2); Eosinophils Absolute Auto 0 /uL (0-450); Eosinophils Percent Auto 0.3 % (2-4); Hematocrit 33.6 % (41-53); Hemoglobin 10.6 g/dL (13.5-17.5); Lymphocytes Absolute Auto 4700 /uL (1100-4500); Lymphocytes Percent Auto 29.8 % (25-40); Mean Corpuscular HGB Conc 31.6 % (30-36); Mean Corpuscular Hemoglobin 24.7 PG (26-34); Mean Corpuscular Volume 78.2 fL (80-100); Monocytes Absolute Auto 1400 /uL (0-900); Monocytes Percent Auto 9.1 % (3-14); Neutrophils Absolute Auto 9500 /uL (1500-7000); Neutrophils Percent Auto 60.1 % (50-75); Platelet Count 397 X10^3/uL (150-400); Red Cell Distribution Width 18.8 % (11.6-14.8); White Blood Cell Count 15.8 X10^3/uL (4.5-11.0)
[2024-03-14 10:19] LABS: BUN Creatinine Ratio 12.9 (6-22); Blood Urea Nitrogen 8 mg/dL (9-20); Calcium 9.3 mg/dL (8.4-10.2); Carbon Dioxide 25 mmol/L (22-32); Chloride 102 mmol/L (98-107); Estimated Glomerular Filt Rate > 60 mL/min (>60); Glucose 96 mg/dL (80-110); HEMOLYSIS < 15 (0-50); Potassium 3.3 mmol/L (3.4-5.1); Sodium 137 mmol/L (137-145)
--- NOTE | 2024-03-14 10:26 | CM.DPNOTE ---
DCP Note LEARNING SPECIALIST reviewed EMR. Per nursing staff in morning multidisciplinary rounds, plan is to advance diet to full this afternoon. Potential dc later today if tolerates. LEARNING SPECIALIST met with pt in room. Pt OOB walking around in room. Pt reports feeling better and is eager and excited to go home. Continues to deny any CM needs. Plan: home with family support when able to tolerate full diet. Anticipate no CM needs. CM team will continue to follow in case and DCP needs arise. DARIO Pineda
--- NOTE | 2024-03-14 10:47 | DIET.CONS ---
Dietary Consultation Note Admission Date: 03/12/2024 13:57 Assessment: 74 y M admitted with SBO. Nutrition screened for low BMI for age. Met with pt at bedside. Reports a gradual decrease in appetite and weight over the last several years. He feels like he lost weight in the last 2-4 days as well r/t to SBO. Last UC flare up reports ~3 yrs ago, does not associate any foods with flare up or symptoms. Diet recall: No breakfast-not hungry, sometimes nauseated L-half a large (24/32 oz) container of Nepali yogurt Grazes throughout day various snacks, i.e. crackers/cheese D-typical meal (protein, carb) Snacks post dinner Nutrition focused physical exam results: Muscle loss: -Moderate to severe loss temporalis -Moderate loss pectoralis major, trapezius -Severe loss deltoid -Moderate loss interosseous Subcutaneous fat loss: -Moderate loss orbital, buccal fat pads, tricep Ht: 165.1 cm Wt: 54.5 kg BMI: 20.0 (underweight for age) UBW: 59 kg per pt beginning of year, -7.5% weight loss in 4 months, non-severe but notable; -3% weight loss within 1 month, non-severe, but notable. Last BM: 03/13/24 (03/13/24 13:05) MNA: Christopher Score: 22 Diet: 03/13/24 Dinner Clear Liquid Diet Diet Modifications: 03/14/24 Lunch Full Liquid Diet Diet Modifications: advance as tolerated Nutrition Percent Meal Consumed 100% 03/13/24 18:00 Labs: RBC 4.30 X10^6/uL (4.5-5.9) L 03/14/24 09:55 Hgb 10.6 g/dL (13.5-17.5) L 03/14/24 09:55 Hct 33.6 % (41-53) L 03/14/24 09:55 Creatinine 0.62 mg/dL (0.66-1.25) L 03/14/24 09:55 Nutrition Diagnosis: Unintended weight loss r/t to decrease in appetite aeb 7.5% loss in 4 months, moderate to severe muscle mass loss, moderate subcutaneous fat loss Interventions: 1. Recc modified energy intake for increase calorie and protein daily, reviewed realistic options to add to daily intake at home 2. Will monitor po intakes, chocolate protein smoothie ordered for lunch with other liquids EER: [id number] kcals (30 kcals/kg) 55-65 g protein (1-1.2 g/kg d/t to age and muscle mass loss) Monitoring/Evaluations: po intakes Electronically Signed by: Michelle Lopez 03/14/24 10:47 Clinical Dietitian [address] [address]
--- NOTE | 2024-03-14 12:30 | P.DS_ITS ---
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 Consistent with prior discomfort he has had with prior bowel obstructions. Presented to the emergency department with this plus significant nausea but no emesis. ER evaluation did indeed diagnose small-bowel obstruction with a lot of gastric distention. NG tube was placed and large volume was returned. Patient was some relief of symptoms with NG tube placement. His white count was slightly elevated at 15,000 with an elevated platelet count probably secondary to the inflammatory response. His white count is left shifted as well. He was admitted for bowel rest continue decompression with the NG tube and pain and nausea management Patient has had multiple episodes of bowel obstruction and has required surgery for resection with his most recent bowel obstruction. Has known ulcerative colitis. General surgery was consulted via the emergency department and has already seen the patient Patient was significant medical problems as noted including chronic pain (back) for which he is chronically on Suboxone, COPD for which he is on Spiriva Symbicort and albuterol, the ulcerative colitis for which he has been on Entyvio, cardiac disease based on positive stress test about 6 months ago. Has been having stable anginal type symptoms and no cardiac catheterization has been done, bladder cancer 1986, splenectomy at age 33 Discharge Providers Provider Date of admission: 03/12/24 13:57 Discharge Date: 03/14/24 Primary care physician: Marlene Swift MD Consults: 03/12/24 13:20 Consult to Physician Stat Comment: Consulting Provider: Roseanna Santiago Reason for consultation: Small-bowel obstruction Has provider been notified: Yes 03/12/24 13:46 Consult to Physician Stat Comment: Consulting Provider: Marlene Swift Reason for consultation: Admission Has provider been notified: No Discharge provider: Marlene Swift MD Summary Hospital Course Discharge Diagnosis: 1) Small bowel obstruction 2) Ulcerative colitis 3) Chronic pain 4) Depression 5) COPD 6) HTN 7) Likely CAD Hospital Course: The pt presented with small bowel obstruction. NG tube was placed, and the pt was made NPO. His pain improved significantly. His diet was gradually advanced, and he tolerated it well. His NG tube was removed without complications. At the time of discharge the pt was tolerating a full liquid diet without any abdominal pain. He had had 2 bowel movements. The pt was discharged home stable. Status at Discharge Cognitive/behavioral status at discharge: oriented Functional status at discharge: independent ambulation Overall status at discharge: patient is back to baseline Exam Vital Signs (past 8 hours): - 03/14/24 04:55 03/14/24 05:04 03/14/24 07:00 Temperature 97.8 F Pulse Rate 86 73 Respiratory Rate 16 Blood Pressure 160/80 H 140/62 Pulse Oximetry 97 96 Oxygen Delivery Method Room Air Oxygen Flow Rate 0 Fraction of Inspired Oxygen 03/14/24 07:38 03/14/24 08:07 03/14/24 09:28 Temperature 98.0 F Pulse Rate 88 94 H 94 H Respiratory Rate 16 16 Blood Pressure 147/93 H 147/93 H Pulse Oximetry 98 100 Oxygen Delivery Method Room Air Oxygen Flow Rate 0 0 Fraction of Inspired Oxygen 21 03/14/24 10:52 Temperature Pulse Rate 101 H Respiratory Rate 16 Blood Pressure Pulse Oximetry 96 Oxygen Delivery Method Room Air Oxygen Flow Rate 0 Fraction of Inspired Oxygen 21 Fraction of Inspired Oxygen 21 SaO2/FiO2 Ratio 457 Oxygen Delivery Method Room Air Oxygen Flow Rate 0 Objective Labs 03/14/24 09:55 03/14/24 09:55 Labs: Laboratory Results - last 24 hr 03/13/24 03/14/24 17:20 09:55 WBC 15.8 H RBC 4.30 L Hgb 10.6 L Hct 33.6 L MCV 78.2 L MCH 24.7 L MCHC 31.6 RDW 18.8 H Plt Count 397 Neut % (Auto) 60.1 D Lymph % (Auto) 29.8 D [place] % (Auto) 9.1 Eos % (Auto) 0.3 L Baso % (Auto) 0.7 Neut # (Auto) 9500 H Lymph # (Auto) 4700 H [place] # (Auto) 1400 H Eos # (Auto) 0 Baso # (Auto) 100 Sodium 137 Potassium 3.8 3.3 L Chloride 102 Carbon Dioxide 25 BUN 8 L Creatinine 0.62 L Estimated GFR > 60 BUN/Creatinine Ratio 12.9 Glucose 96 Calcium 9.3 Magnesium 2.2 PFSH Medical History Bladder cancer Coronary artery disease Ulcerative colitis COPD (chronic obstructive pulmonary disease) Depression GERD without esophagitis T-cell lymphoma Uncomplicated opioid dependence Chronic back pain Essential hypertension Surgical History S/P exploratory laparotomy S/P splenectomy Social History household members: significant other and children Smoking Status: Former smoker alcohol intake: former Discharge Plan Discharge Plan Patient Disposition: Home Discharge orders & Medications Prescriptions: Continued candesartan 8 mg tablet 8 mg PO DAILY buprenorphine-naloxone [Suboxone] 8-2 mg film 1 film buccal TID rabeprazole 20 mg tablet,delayed release (DR/EC) 20 mg PO BID escitalopram oxalate 10 mg tablet 10 mg PO DAILY bupropion HCl [Wellbutrin XL] 300 mg tablet extended release 24 hr 300 mg PO QAM mirtazapine 15 mg tablet 15 mg PO .QHS atorvastatin 10 mg tablet 10 mg PO DAILY nabilone 1 mg capsule 1 mg PO BID Spiriva Respimat 1.25 mcg/actuation mist 2 puff inhalation DAILY budesonide-formoterol [Symbicort] 80-4.5 mcg/actuation HFA aerosol inhaler 2 puff inhalation BID mometasone [Nasonex 24hr Allergy] 50 mcg/actuation spray,non-aerosol 2 spray intranasal .prn Rx Instructions: administer into each nostril Entyvio 300 mg recon soln 300 mg IV Q8W Rx Instructions: administer over 30 mins albuterol 90 mcg/actuation Aerosol 90 mcg INHALATION DAILY PRN (Reason: SOB) folic acid 1 mg Tablet 5 mg PO DAILY Rx Instructions: 5mg daily except on daily receiving methotrexate. No Action methotrexate (PF) 15 mg/0.4 mL auto-injector 15 mg SUBCUT QWEEK Qty: 1.6 2RF Follow up/Referrals: Marlene Swift MD [Primary Care Provider] - Diet/Activity/Treatments Diet: Diet as Tolerated and Regular Skin/Wound/Dressing Care Report to your healthcare provider any signs of infection, such as:: increased pain Visit Report/Discharge Packet Stand Alone Forms: Patient Portal/API, Stroke Signs & Symptoms Discharge Data Primary Care Provider: Marlene Swift Discharges patient from system. Discharge Date/Time: 03/14/24 13:25
[2024-03-14] MEDS: POTASSIUM CHLORIDE 20 MEQ TAB 40 MEQ PO (13:00)
--- NOTE | 2024-03-14 13:49 | PC.NURSE ---
Patient is A&OX4, VSS, afebrile on RA. He reports stomach feeling much better, he denies n/v and tolerates clear liquid breakfast well. NGT removed and diet advanced to full liquid. He tolerates full liquids well. MD at bedside evaluating patient and he is cleared for discharge home this afternoon. He verbalizes understanding of medications, activity, diet and worsening symptoms. He is escorted with all of his belongings by RN with to private vehicle for discharge back to daughter's house for a couple of days at approximately 1325 this afternoon.
== END 2024-03-14 13:25 | disposition home or self-care (01) | DRG 389 ==
LOC: ED 13:47 → AC 13:58
PROVIDERS: Admitting Provider Internal Medicine; Emergency Provider Emergency Medicine; PCP Family Medicine; Referring Provider Emergency Medicine; Visit Provider Family Medicine
DX: K56.50 Intestinal adhesions [bands], unspecified as to partial versus complete obstruction (principal); K51.90 Ulcerative colitis, unspecified, without complications; G89.29 Other chronic pain; F32.A Depression, unspecified; I25.10 Atherosclerotic heart disease of native coronary artery without angina pectoris; J44.9 Chronic obstructive pulmonary disease, unspecified; E87.6 Hypokalemia; I10 Essential (primary) hypertension; M54.9 Dorsalgia, unspecified; K21.9 Gastro-esophageal reflux disease without esophagitis; Z90.81 Acquired absence of spleen; Z87.891 Personal history of nicotine dependence
CPT/HCPCS: 36415; 74018; 74177; 80048; 80053; 82550; 83690; 83735; 84132; 84484; 85007; 85025; 94640; 94760; 96374; 96375; 99285; C9113; J1170; J1650; J2060; J2270; J2405; J2765; Q9967

== ENCOUNTER → 2025-06-01 09:01 | Outpatient (CLI) | payer MEDICARE, SELFPAY ==
[2025-06-01 09:40] LABS: Estimated Glomerular Filt Rate > 60 mL/min (>60)
--- NOTE | 2025-06-01 10:40 | DI.CT.S_ITS ---
PROCEDURE: CT ABDOMEN PELVIS W CON INDICATIONS: abdominal pelvic mass TECHNIQUE: After the administration of intravenous contrast, axial sections acquired from the lung bases to the pubic symphysis. Coronal and sagittal reformats were performed. For radiation dose reduction, the following was used: automated exposure control, adjustment of mA and/or kV according to patient size. COMPARISON: [facility], CT, CT ABDOMEN PELVIS W CON, 03/12/2024, 11:15. FINDINGS: Image quality: Diagnostic. Lower Chest: Mild bibasilar atelectasis. Small hiatal hernia. Heart size is normal. Multivessel atherosclerotic calcifications of the coronary arteries. ABDOMEN: Liver: No solid mass. Gallbladder: Gallbladder appears decompressed. Biliary ducts: No biliary dilation. Pancreas: No ductal dilation. No peripancreatic inflammation. Spleen: Status post splenectomy. Adrenal Glands: No adrenal nodules. Kidneys and Ureters: No hydronephrosis. No solid mass. No complex renal cystic lesion which requires follow up. Stomach and Bowel: There is circumferential thickening of the distal sigmoid colon and rectum. Moderate fecal burden seen in the proximal descending colon, transverse colon, an acid in colon. Stable postsurgical changes in the right lower quadrant. No evidence for small bowel obstruction. Peritoneum: No abnormal intraperitoneal fluid. No free air. Ventral Wall: No significant ventral hernia. Abdominal Nodes: No retroperitoneal or mesenteric adenopathy by size criteria. Vessels: Aorta and inferior vena cava are normal in size. PELVIS: Pelvic Organs: Mild prostatomegaly.. Bladder: There is minimal circumferential urinary bladder wall thickening which may be related to incomplete distention; however, cystitis may have a similiar appearance. Pelvic Nodes: No enlarged lymph nodes. Miscellaneous: No inguinal hernias are seen. Bones: No aggressive osseous abnormality. Stable postsurgical changes of spinal fusion of L2 through S1. Lower lumbar laminectomies. No acute compression fractures. Stable appearance of severe degenerative changes at L1-2. IMPRESSION: 1. Mild circumferential wall thickening of the distal sigmoid colon and rectum possibly representing proctocolitis either infectious or inflammatory in etiology. 2. There is mild circumferential urinary bladder wall thickening which may be related to incomplete distension; however, it appears slightly more pronounced than expected for degree of bladder distension. Findings may represent cystitis versus sequela of chronic bladder outlet obstruction given prostatomegaly. Recommend clinical and laboratory correlation. 3. No evidence for bowel obstruction. Other chronic and nonacute findings as above. Dictated by: Florentino Pate M.D. on 06/01/2025 at 16:00 Approved by: Florentino Pate M.D. on 06/01/2025 at 16:19
[2025-06-11 17:42] LABS: Appearance Urine UA CLEAR; Bilirubin Urine UA NEGATIVE (NEGATIVE); Color Urine UA YELLOW; Glucose Urine UA NEGATIVE (Negative); Ketones Urine UA NEGATIVE (NEGATIVE); Leukocyte Esterase Urine UA NEGATIVE (NEGATIVE); Nitrite Urine UA NEGATIVE (Negative); Occult Blood Urine UA NEGATIVE (Negative); Protein Urine UA NEGATIVE (Negative); Specific Gravity Urine UA <=1.005 (1.000-1.035); Urobilinogen Urine UA 0.2 E.U./dL (0.2); pH Urine UA 5.5 (4.5-8.0)
[2025-06-11 17:49] LABS: Culture Indicated Urine Cult Not Indicated
== END ==
PROVIDERS: PCP Family Medicine; Referring Provider Internal Medicine Gastroenterology; Visit Provider Internal Medicine Gastroenterology
DX: R19.00 Intra-abdominal and pelvic swelling, mass and lump, unspecified site (principal)
CPT/HCPCS: 36415; 74177; 81001; 82565; Q9967

== ENCOUNTER → 2025-09-21 08:56 | Outpatient (CLI) | payer MEDICARE, OTHER, SELFPAY ==
[2025-09-17 09:20] VITALS: BMI 18.3
--- NOTE | 2025-09-21 08:59 | DI.RAD.S_ITS ---
PROCEDURE: XR CHEST 2V INDICATIONS: Cough TECHNIQUE: 2 views of the chest were acquired. COMPARISON: None. FINDINGS: Surgical changes and devices: Post effusion changes are noted in lumbar spine. Lungs and pleura: Lungs are clear. No pleural effusions or pneumothorax. Mediastinum: Mediastinal contours are normal. Heart size is normal. Bones and chest wall: No suspicious bony abnormalities. Soft tissues appear unremarkable. IMPRESSION: No acute cardiopulmonary pathology. Dictated by: Vikram Henderson M.D. on 09/21/2025 at 9:16 Approved by: Vikram Henderson M.D. on 09/21/2025 at 9:16
== END ==
PROVIDERS: PCP Family Medicine; Referring Provider Family Medicine; Visit Provider Nurse Practitioner Family
DX: R05.9 Cough, unspecified (principal)
CPT/HCPCS: 71046; 87637

== ENCOUNTER → 2025-09-21 09:00 | Outpatient (CLI) | payer MEDICARE, OTHER, SELFPAY ==
[2025-09-17 09:20] VITALS: BMI 18.3
[2025-09-21 09:59] LABS: COVID-19 CEPHEID 4-PLEX PCR Negative (Negative); Influenza A - CEPHEID Flu A NEGATIVE (NEGATIVE); Influenza B - CEPHEID Flu B NEGATIVE (NEGATIVE)
== END ==
PROVIDERS: PCP Family Medicine; Visit Provider Nurse Practitioner Family
DX: R05.1 Acute cough (principal)
CPT/HCPCS: 87637

== ENCOUNTER → 2025-10-02 11:13 | Outpatient (CLI) | payer MEDICARE, OTHER, SELFPAY ==
[2025-09-17 09:20] VITALS: BMI 18.3
--- NOTE | 2025-10-02 11:16 | DI.RAD.S_ITS ---
PROCEDURE: XR TIBIA FIBULA LT 2V INDICATIONS: ankle/villegas pain TECHNIQUE: 2 views of the tibia and fibula were acquired. COMPARISON: None. FINDINGS: Bones: No fractures or dislocations. No suspicious bony lesions. Soft tissues: No suspicious soft tissue calcifications or masses. IMPRESSION: No acute bony abnormality. Dictated by: Sarah Graham M.D. on 10/03/2025 at 5:48 Approved by: Sarah Graham M.D. on 10/03/2025 at 5:48
--- NOTE | 2025-10-02 11:16 | DI.RAD.S_ITS ---
PROCEDURE: XR ANKLE LT MIN 3V INDICATIONS: ankle/villegas pain TECHNIQUE: 3 views of the ankle were acquired. COMPARISON: None. FINDINGS: Bones: No fractures or dislocations. Ankle mortise is normally aligned. No suspicious bony lesions. Mild tibiotalar joint space narrowing and osteophytes. Soft tissues: No joint effusion. Vascular calcifications are present. IMPRESSION: No acute bony abnormality or significant effusion. Dictated by: Sarah Graham M.D. on 10/03/2025 at 5:49 Approved by: Sarah Graham M.D. on 10/03/2025 at 5:50
== END ==
PROVIDERS: PCP Family Medicine; Referring Provider Family Medicine; Visit Provider Family Medicine
DX: M25.772 Osteophyte, left ankle (principal); M25.579 Pain in unspecified ankle and joints of unspecified foot; M79.669 Pain in unspecified lower leg
CPT/HCPCS: 73590; 73610